=== PATIENT | female | born 1940 | race Caucasian/White ===

== ENCOUNTER 2016-11-09 15:51 | Inpatient (IN) | payer OTHER ==
[~2016-11-09] VITALS: Ht 152.4 cm; Wt 53.9 kg
[2016-11-09] MEDS ORDERED: ONDANSETRON (ODT) 4 MG TAB ODT STA (17:04)
[2016-11-09] MEDS ORDERED: HYDROCODONE/APAP (5/325) TAB PO ONE (17:30)
--- NOTE | 2016-11-09 17:38 | RADRPT ---
PROCEDURE: XR Right Shoulder CLINICAL INDICATION: Trauma TECHNIQUE: AP internal and external rotation views were submitted. COMPARISON: None FINDINGS: Osseous structures: The surgical neck of the proximal right humerus is poorly seen due to the angle of projection. A nondisplaced fracture is suspected. The remaining osseous elements appear rarefie d but intact. Joint spaces: There is an anterior inferior glenohumeral dislocation. Mild degenerative changes are seen about the right AC joint. Soft tissues: Calcification is seen in the soft tissues inferior to the acromion. IMPRESSION: 1. Anterior inferior glenohumeral dislocation. 2. Suspicion of a nondisplaced fracture through the surgical neck of the proximal right humerus whi ch is less than on the seen due to the angulation of the image. 3. Mild degenerative change seen about the right AC joint with calcification projecting to the soft tissues inferior to the acromion. Physician Andrea Date Time Electronically viewed and signed by Physician Andrea on 11/09/2016 17:38 /
[2016-11-09] MEDS ORDERED: SOD CHLORIDE 0.9% 1,000 ML IV ONE (18:00)
[2016-11-09] MEDS ORDERED: LEVO75TA65 PO (18:19)
[2016-11-09] MEDS ORDERED: LOSA50TA6 PO (18:19)
[2016-11-09] MEDS ORDERED: DICL50TA11 PO (18:20)
[2016-11-09 18:24] LABS: HEMATOCRIT 38.4 % (37.0-47.0); HEMOGLOBIN 13.2 g/dl (12.0-16.0); LYMPHOCYTES # 0.6 10^3/ul (0.8-2.9); MEAN CORPUSCULAR HEMOGLOBIN 30.4 pg (29.0-33.0); MEAN CORPUSCULAR HGB CONC 34.2 g/dl (32.0-37.0); MEAN CORPUSCULAR VOLUME 88.9 fl (82.0-101.0); MEAN PLATELET VOLUME 8.4 fl (7.4-10.4); MONOCYTE # 0.2 10^3/ul (0.3-0.9); MONOCYTES % 2.2 % (0.0-11.0); NEUTROPHIL # 9.5 10^3/ul (1.6-7.5); NEUTROPHILS % 91.8 % (39.0-77.0); PLATELET COUNT 275 10^3/UL (140-440); RED BLOOD COUNT 4.32 10^6/ul (4.20-5.40); RED CELL DISTRIBUTION WIDTH 13.2 % (11.5-14.5); UNCORRECTED WBC 10.3 10^3/ul (4.8-10.8); WHITE BLOOD COUNT 10.3 10^3/ul (4.8-10.8)
[2016-11-09 18:26] LABS: CONDITION 1; LH ANALYZER COMMENTS 1
[2016-11-09 18:33] LABS: INR 0.95; PARTIAL THROMBOPLASTIN TIME 25.9 Sec (25.0-35.0); PROTIME 12.7 Sec (12.2-14.2)
[2016-11-09] MEDS ORDERED: morphine 4 MG/ML VIAL IV STA (18:33)
[2016-11-09 18:35] LABS: POTASSIUM 3.9 mmol/L (3.5-5.1)
[2016-11-09 18:38] LABS: CALCIUM 8.4 mg/dl (8.4-10.2); CREATININE 0.52 mg/dl (0.44-1.00)
--- NOTE | 2016-11-09 19:47 | ERA ---
ER Documentation Chief Complaint Date/Time DATE: 11/09/16 TIME: 19:37 Chief Complaint right arm pain from a fall this morning. no obvious deformity, limited rom HPI Patient fell this morning on moving for and landed all the way down her right shoulder joint. She had immediate shoulder pain at that time. She is been able to use the arm at all. She has significant pain. States that she suffered no head injury or loss of consciousness. No other injury and source of pain in her body. She is generally healthy with a history of only hypertension and thyroidism. ROS All systems reviewed and are negative except as per history of present illness. Medications Home Meds Reported Medications Diclofenac Sodium* (Diclofenac Sodium*) 50 Mg Tablet.dr, 50 MG PO BID Y for PAIN , #60 TAB 11/09/16 Levothyroxine Sodium* (Levoxyl*) 75 Mcg Tablet, 75 MCG PO BEFORE BREAKFAST, #30 TAB 11/09/16 Losartan Potassium* (Losartan Potassium*) 50 Mg Tablet, 50 MG PO DAILY, TAB 11/09/16 Allergies Allergies: Coded Allergies: No Known Allergy (Unverified , 11/09/16) PMhx/Soc Medical and Surgical Hx: pt denies Surgical Hx History of Surgery: No Anesthesia Reaction: No Hx Neurological Disorder: No Hx Respiratory Disorders: No Hx Cardiac Disorders: No Hx Psychiatric Problems: No Hx Miscellaneous Medical Probl: Yes (HTN) Hx Alcohol Use: No Hx Substance Use: No Hx Tobacco Use: No Smoking Status: Never smoker Physical Exam Vitals Vital Signs Date Time Temp Pulse Resp B/P Pulse Ox O2 Delivery O2 Flow Rate FiO2 11/09/16 15:57 98.5 76 20 174/88 98 Physical Exam Const: [] Mild distress, appears in pain Head: Atraumatic Eyes: Normal Conjunctiva him EOMI, PRL ENT: Normal External Ears, Nose and Mouth. Neck: Full range of motion..~ No meningismus. Resp: Clear to auscultation bilaterally Cardio: Regular rate and rhythm, no murmurs Abd: Soft, non tender, non distended. Normal bowel sounds Skin: No petechiae or rashes Back: No midline or flank tenderness Ext: No cyanosis, significant tenderness along the upper arm. Patient able to move arm secondary to pain. The pulses intact all 4 extremities Neur: Awake and alert and oriented 3, no focal deficits, normal gait Psych: Normal Mood and Affect Result Diagram: 11/09/16180911/09/16 181 Results 24 hrs Laboratory Tests Test 11/09/16 18:10 Activated Partial Thromboplast Time 25.9Sec Anion Gap 14 Basophils # 0.010^3/ul Basophils % 0.0% Blood Urea Nitrogen 15mg/dl Calcium Level 8.4mg/dl Carbon Dioxide Level 27mmol/L Chloride Level 99mmol/L Creatinine 0.52mg/dl Eosinophils # 0.010^3/ul Eosinophils % 0.0% Glucose Level 124mg/dl Hematocrit 38.4% Hemoglobin 13.2g/dl INR International Normalized Ratio 0.95 Lymphocytes # 0.610^3/ul Lymphocytes % 6.0% Mean Corpuscular Hemoglobin 30.4pg Mean Corpuscular Hemoglobin Concent 34.2g/dl Mean Corpuscular Volume 88.9fl Mean Platelet Volume 8.4fl Monocytes # 0.210^3/ul Monocytes % 2.2% Neutrophils # 9.510^3/ul Neutrophils % 91.8% Nucleated Red Blood Cells # 0.010^3/ul Nucleated Red Blood Cells % 0.0/100WBC Platelet Count 77771^3/UL Potassium Level 3.9mmol/L Prothrombin Time 12.7Sec Prothrombin Time Ratio 1.0 Red Blood Count 4.3210^6/ul Red Cell Distribution Width 13.2% Sodium Level 136mmol/L White Blood Count 10.310^3/ul Current Medications Medications (Trade) Dose Ordered Sig/Casi Route PRN Reason Start Time Stop Time Status Last Admin Dose Admin Acetaminophen/ Hydrocodone Bitart (Victoria (5/325)) 1 tab ONCE ONCE PO 11/09/16 17:30 11/09/16 17:31 DC 11/09/16 17:13 Ondansetron HCl 4 mg 4 mg ONCE STAT ODT 11/09/16 17:04 11/09/16 17:06 DC 11/09/16 17:13 Sodium Chloride (NS) 1,000 ml @ 1,000 mls/hr Q1H ONCE IV 11/09/16 18:00 11/09/16 18:59 DC Morphine Sulfate (morphine) 4 mg ONCE STAT IV 11/09/16 18:33 11/09/16 18:34 DC 11/09/16 18:41 Procedures/MDM (Joint dislocation with displaced humeral fracture. Spoke with Dr. Montero after the x-ray and he stated this need to be repaired surgically. Performed preop testing with laboratories, chest x-ray EKG. I spoke with her doctor at [facility] or the patient's insurance is based. She said she would attempt to find orthopedic surgeon except in case there and with transfer the patient otherwise she will outpatient stay here. According to registration should call back and said the patient could be admitted here to [facility]. Spoke with Dr. arias who admitted the patient to [facility]. I gave her a liter of normal saline obtained multiple laboratories. Also gave her 4 mg of morphine which helped her pain much more than the Victoria had. She is nothing by mouth until surgery which is intended for tomorrow according to Dr. Montero. Dr. Montero requested a CT of the right shoulder as well. EKG interpretation: Normal sinus rhythm rate of 70, normal axis, no ST-T wave changes concerning for acute ischemia tube washer interpretation: Normal sinus rhythm without arrhythmia Chest x-ray interpretation: Humeral fracture is arty seen, I see no other acute process, no pneumothorax, no widened mediastinum, no pulmonary edema, no other fractures Shoulder x-ray interpretation: Glenohumeral joint dislocation with completely displaced fracture of the proximal humerus. Departure Diagnosis: Primary Impression: Closed dislocation of glenohumeral joint Additional Impressions: Fracture of proximal end of right humerus Hypertension Hypothyroid Condition: Stable TYLER MEDINA DO Nov 09, 2016 19:47
[2016-11-09] MEDS ORDERED: ACETAMINOPHEN 325 MG TAB PO PRN ×2 (20:00)
[2016-11-09] MEDS ORDERED: NACL 0.9% 3 ML SYG IV SCH (20:00)
[2016-11-09] MEDS ORDERED: DOCUSATE SODIUM 100 MG CAP PO PRN (20:00)
[2016-11-09] MEDS ORDERED: ONDANSETRON 4 MG INJ IV PRN ×2 (20:00)
--- NOTE | 2016-11-09 20:00 | RADRPT ---
PROCEDURE: Chest xray. CLINICAL INDICATION: Abdominal TECHNIQUE: A portable semi-erect AP view of the chest was obtained. COMPARISON: Right shoulder x-ray dated 11/09/2016. No prior chest x-ray is available for comparis on. FINDINGS: The cardiac silhouette is mildly enlarged. Atherosclerotic calcifications are noted in the aortic a rch. The lungs are well expanded and show normal vascularity. No focal opacity, pleural effusion, or pneumothorax is identified. Anterior inferior dislocation of the right glenohumeral joint is agai n noted, better evaluated on the shoulder xray and CT performed earlier today. IMPRESSION: Mild cardiomegaly. Otherwise, no acute intrathoracic abnormality. Anterior inferior glenohumeral dislocation of the right shoulder. RPTAT:PP .Maxine Weaver MD, Date Time Electronically viewed and signed by .Maxine Weaver MD, on 11/09/2016 19:55 .K/
[2016-11-09 20:16] LABS: CHOL/HDL RATIO 4.8 RATIO; MAGNESIUM 1.8 mg/dl (1.7-2.5)
--- NOTE | 2016-11-09 20:17 | RADRPT ---
PROCEDURE: CT of the upper extremity without intravenous contrast. CLINICAL INDICATION: Trauma TECHNIQUE: CT of the right shoulder upper extremity was performed without contrast utilizing axial images with reconstructions in sagittal and coronal planes. The administered radiation dose is CTDI 11.5 mGy, DLP 207.2 mGy-cm. COMPARISON: There are no similar studies submitted for comparison. FINDINGS: There is inferior dislocation of the humeral head. Joint effusion is present. Arthritic changes of the shoulder are present. Multiple small osseous fragments are noted within the joint space. These appear to be degenerative in etiology. No definite acute fractures are identified. There is moder ate to large joint effusion. The subcutaneous soft tissues are within normal limits. IMPRESSION: Shoulder dislocation without definite fracture. RPTAT: HIKT .Sebastian Smith MD, Date Time Electronically viewed and signed by .Sebastian Smith MD, on 11/09/2016 20:17 .T/
[2016-11-09 20:19] VITALS: BP 193/79; RESP 18
--- NOTE | 2016-11-09 20:25 | HP ---
Date/Time of Note Date/Time of Note DATE: 11/09/16 TIME: 20:16 Assessment/Plan VTE Prophylaxis VTE Prophylaxis Intervention: SCD's Assessment/Plan Assessment/Plan 76 yo female with a past medical history of essential hypertension, hypothyroidism, who sustained a fall today, and fell on her right shoulder. 1. Acute right shoulder dislocation with right non-displaced fracture of humeral head - will admit the patient to med/surg, consult Dr. Montero (ortho) for surgical manipulation and fixation, continue with pain medications, medically cleared for surgery, bowel regimen, PT 2. Essential hypertension - continue with losartan, hydralazine prn for SBP > 160 3. Hypothyroidism - check TSH, continue with synthroid 4. GI ppx - pepcid IV 5. DVT ppx - scds answered all of her questions. as per clinical course. this history and physical took greater then 45 minutes to complete HPI/ROS Admit Date/Time Admit Date/Time Nov 09, 2016 at 19:37 Hx of Present Illness 76 yo female with a past medical history of essential hypertension, hypothyroidism, who sustained a fall today, and fell on her right shoulder. She is now complaining of right shoulder pain, 6/10 in intensity, non-radiating, sharp/shooting in nature, took diclofenac with no alleviation of pain, movement aggravates the pain at this time. She states that she slipped and fell, and landed on her right side. She did not have syncope, lose consciousness, have any sort of dizziness or hit her head. This has never happened before. Otherwise denies any chest pain, shortness of breath, headaches, urinary/bowel irregularities, fevers/chills, nausea/vomiting/diarrhea/constipation, direct trauma, or other constitutional symptoms. Patient is able to walk up a flight of stairs without getting short of breath, 4 METS achieved. ER course: pain medications, right shoulder x-ray (see report) ROS 14 point review of systems completed, please refer to HPI for any positive findings PMH/Family/Social Past Medical History Medical History: hypertension, hypothyroid Past Surgical History Family History Significant Family History: no pertinent family hx Social History Alcohol Use: none Smoking Status: Never smoker Drug Use: none Exam/Review of Systems Vital Signs Vitals Vital Signs Date Time Temp Pulse Resp B/P Pulse Ox O2 Delivery O2 Flow Rate FiO2 11/09/16 20:06 74 16 164/86 98 Room Air 11/09/16 15:57 98.5 Exam Exam Gen Renata: mild to moderate distress 2/2 to right shoulder pain, AAOx4 HEENT: NC/AT, PERRLA, EOMI, no pharyngeal erythema, no tonsillar exudates, no lymphadenopathy, no JVD, no carotid bruits NECK: supple, no thyromegaly THORAX: symmetrical, no obvious deformities CV: S1S2, RRR, no M/G/R Lungs: CTAB no W/C/R/R Abd: soft, NT/ND, +BS, no rebound, no guarding, neg HSM EXT: no edema, no ecchymosis, no clubbing, right arm - tenderness to palpation around gleno-humeral joint, no ecchymoses noted, left arm FROM Neuro: CN II-XII grossly intact, no focal deficits Psych: fair mood and affect Skin: C/D/I Labs Result Diagram: 11/09/16180911/09/161809 Medications Medications Current Medications Sodium Chloride (NS) 1,000 ml @ 75 mls/hr [id number] IV ; Start 11/09/16 at 19:36 Ondansetron HCl (Zofran Inj) 4 mg Q6H PRN IV NAUSEA AND/OR VOMITING; Start at 20:00 Acetaminophen (Tylenol Tab) 650 mg Q6H PRN PO PAIN LEVEL 1-3 OR FEVER; Start at 20:00 Morphine Sulfate (morphine) 2 mg Q4H PRN IV SEVERE PAIN LEVEL 7-10; Start 11/09 at 20:00 Docusate Sodium (Colace) 100 mg Q12H PRN PO CONSTIPATION; Start 11/09/16 at 20: 00 Famotidine (Pepcid Iv) 20 mg Q12 IV ; Start 11/09/16 at 21:00 Losartan Potassium (Cozaar) 50 mg DAILY PO ; Start 11/10/16 at 09:00 Hydralazine HCl (Apresoline) 10 mg Q6H PRN IV sbp > 160; Start 11/09/16 at 20: 00 Procedures Procedures Right shoulder x-ray IMPRESSION: 1. Anterior inferior glenohumeral dislocation. 2. Suspicion of a nondisplaced fracture through the surgical neck of the proximal right humerus which is less than on the seen due to the angulation of the image. 3. Mild degenerative change seen about the right AC joint with calcification projecting to the soft tissues inferior to the acromion. ERICH COTE MD Nov 09, 2016 20:25
[2016-11-09 20:32] LABS: T3 UPTAKE 39.3 % (23.5-40.5)
[2016-11-09 20:41] LABS: CREATINE KINASE 330 IU/L (23-200)
[2016-11-09] MEDS: SOD CHLORIDE 0.9% 1,000 ML IV SCH (20:50)
[2016-11-09 20:51] LABS: CK-MB 3.04 ng/ml (0.0-2.4)
[2016-11-09] MEDS: hydrALAzine 20 MG INJ IV PRN (21:00)
[2016-11-09] MEDS: FAMOTIDINE 20 MG INJ IV SCH (21:00)
[2016-11-09 21:01] LABS: TROPONIN-I < 0.012 ng/ml (0.00-0.12)
[2016-11-09] MEDS: morphine 2 MG INJ IV PRN (22:17)
[2016-11-09 22:30] VITALS: BP 157/65; PULSE 69; RESP 18
[2016-11-10] VITALS (29 sets, daily range): BP systolic 122–172; BP diastolic 51–85; PULSE 69–178; RESP 17–24
[2016-11-10] MEDS: morphine 2 MG INJ IV PRN ×3 (02:18→12:25)
[2016-11-10 02:35] LABS: CREATINE KINASE 399 IU/L (23-200)
[2016-11-10 02:41] LABS: CK-MB 3.69 ng/ml (0.0-2.4)
[2016-11-10 02:52] LABS: TROPONIN-I < 0.012 ng/ml (0.00-0.12)
[2016-11-10] MEDS: LEVOTHYROXINE 75 MCG TAB PO SCH (05:57)
[2016-11-10 06:36] LABS: POTASSIUM 3.4 mmol/L (3.5-5.1)
[2016-11-10 06:38] LABS: CREATININE 0.55 mg/dl (0.44-1.00)
[2016-11-10 06:39] LABS: CALCIUM 7.8 mg/dl (8.4-10.2)
[2016-11-10 07:18] LABS: BASOPHILS % 0.1 % (0.0-2.0); EOSINOPHILS % 0.1 % (0.0-7.0); HEMATOCRIT 35.8 % (37.0-47.0); HEMOGLOBIN 12.4 g/dl (12.0-16.0); LYMPHOCYTES # 0.7 10^3/ul (0.8-2.9); LYMPHOCYTES % 9.5 % (15.0-51.0); MEAN CORPUSCULAR HGB CONC 34.7 g/dl (32.0-37.0); MEAN CORPUSCULAR VOLUME 89.4 fl (82.0-101.0); MEAN PLATELET VOLUME 8.8 fl (7.4-10.4); MONOCYTE # 0.5 10^3/ul (0.3-0.9); MONOCYTES % 6.5 % (0.0-11.0); NEUTROPHIL # 6.2 10^3/ul (1.6-7.5); NEUTROPHILS % 83.8 % (39.0-77.0); PLATELET COUNT 239 10^3/UL (140-440); RED CELL DISTRIBUTION WIDTH 13.5 % (11.5-14.5); UNCORRECTED WBC 7.4 10^3/ul (4.8-10.8); WHITE BLOOD COUNT 7.4 10^3/ul (4.8-10.8)
[2016-11-10 07:23] LABS: CONDITION 1
[2016-11-10] MEDS: hydrALAzine 20 MG INJ IV PRN (08:24)
[2016-11-10] MEDS: SOD CHLORIDE 0.9% 1,000 ML IV SCH ×2 (08:56→18:05)
[2016-11-10] MEDS: FAMOTIDINE 20 MG INJ IV SCH ×2 (09:00→21:24)
[2016-11-10] MEDS: LOSARTAN 50 MG TAB PO SCH (09:00)
[2016-11-10] MEDS ORDERED: MIDAZOLAM 1 MG/ML 2 ML INJ ONE (10:47)
[2016-11-10] MEDS ORDERED: PROPOFOL 20 ML ONE (11:01)
[2016-11-10] MEDS ORDERED: LIDOCAINE 2% (SDV) 5 ML INJ ONE (11:01)
--- NOTE | 2016-11-10 11:29 | PN ---
Date/Time of Note Date/Time of Note DATE: 11/10/16 TIME: 11:27 Assessment/Plan VTE Prophylaxis VTE Prophylaxis Intervention: SCD's Lines/Catheters IV Catheter Type (from Nrsg): Peripheral IV Assessment/Plan Chief Complaint/Hosp Course 76 yo female with a past medical history of essential hypertension, hypothyroidism, mechanical fall with left shoulder fracture and dislocation 1. Acute right shoulder dislocation with right non-displaced fracture of humeral head Patient taken to the OR this morning by Dr. Montero Continue postop recommendations 2. Essential hypertension BP likely elevated secondary to pain, continue with losartan, hydralazine prn for SBP > 160 3. Hypothyroidism - check TSH, continue with synthroid 4. GI ppx - pepcid IV 5. DVT ppx - scds Problems: Subjective 24 Hr Interval Summary Free Text/Dictation The patient taken to the OR for shoulder surgery Stable following transfer to [facility] floor from ER Exam/Review of Systems Vital Signs Vitals Vital Signs Date Time Temp Pulse Resp B/P Pulse Ox O2 Delivery O2 Flow Rate FiO2 11/10/16 11:18 Simple Mask 10.0 11/10/16 11:08 78 22 131/51 100 11/10/16 11:06 98.2 Intake and Output 11/09/16 11/09/16 11/10/16 15:00 23:00 07:00 Intake Total 600 ml Balance 600 ml Exam GENERAL: Elderly lady left arm in sling VITAL SIGNS: per chart NECK: Supple. No JVD or lymphadenopathy. CARDIAC EXAM: S1, S2. No added sounds or murmurs. CHEST: clear bilaterally, No added sounds, rales or wheezes ABDOMEN: Soft, nontender. No guarding or rebound. EXTREMITIES: No cyanosis, clubbing or edema. NEUROLOGIC: Generalized weakness. No focal deficits. Results Result Diagram: 11/10/16 0516 11/10/16 0516 Results 24 hrs Laboratory Tests Test 11/09/16 18:10 11/10/16 01:51 11/10/16 05:16 Activated Partial Thromboplast Time 25.9 Anion Gap 14 12 Basophils # 0.0 0.0 Basophils % 0.0 0.1 Blood Urea Nitrogen 15 12 Calcium Level 8.4 7.8 L Carbon Dioxide Level 27 27 Chloride Level 99 102 Cholesterol Level 243 H Cholesterol/HDL Ratio 4.8 Creatine Kinase 330 H 399 H Creatine Kinase Index 0.9 0.9 Creatinine 0.52 0.55 Creatinine Kinase MB (Mass) 3.04 H 3.69 H Eosinophils # 0.0 0.0 Eosinophils % 0.0 0.1 Free Thyroxine Index 3.58 Glucose Level 124 109 HDL Cholesterol 50 Hematocrit 38.4 35.8 L Hemoglobin 13.2 12.4 Hemoglobin A1c 5.5 INR International Normalized Ratio 0.95 LDL Cholesterol, Calculated 179 Lymphocytes # 0.6 L 0.7 L Lymphocytes % 6.0 L 9.5 L Magnesium Level 1.8 Mean Corpuscular Hemoglobin 30.4 31.0 Mean Corpuscular Hemoglobin Concent 34.2 34.7 Mean Corpuscular Volume 88.9 89.4 Mean Platelet Volume 8.4 8.8 Monocytes # 0.2 L 0.5 Monocytes % 2.2 6.5 Neutrophils # 9.5 H 6.2 Neutrophils % 91.8 H 83.8 H Nucleated Red Blood Cells # 0.0 0.0 Nucleated Red Blood Cells % 0.0 0.0 Platelet Count 275 239 Potassium Level 3.9 3.4 L Prothrombin Time 12.7 Prothrombin Time Ratio 1.0 Red Blood Count 4.32 4.00 L Red Cell Distribution Width 13.2 13.5 Sodium Level 136 138 Thyroxine (T4) 9.1 Triglycerides Level 72 Triiodothyronine (T3) Uptake 39.3 Troponin I < 0.012 < 0.012 White Blood Count 10.3 7.4 # Medications Medications Current Medications Sodium Chloride (NS) 1,000 ml @ 75 mls/hr [id number] IV Last administered on 11/09 20:50; Admin Dose 75 MLS/HR; Start 11/09/16 at 19:36 Ondansetron HCl (Zofran Inj) 4 mg Q6H PRN IV NAUSEA AND/OR VOMITING Last administered on 11/09/16 22:18; Admin Dose 4 MG; Start 11/09/16 at 20:00 Acetaminophen (Tylenol Tab) 650 mg Q6H PRN PO PAIN LEVEL 1-3 OR FEVER; Start at 20:00 Morphine Sulfate (morphine) 2 mg Q4H PRN IV SEVERE PAIN LEVEL 7-10 Last administered on 11/10/16 06:27; Admin Dose 2 MG; Start 11/09/16 at 20:00 Docusate Sodium (Colace) 100 mg Q12H PRN PO CONSTIPATION; Start 11/09/16 at 20: 00 Famotidine (Pepcid Iv) 20 mg Q12 IV Last administered on 11/09/16 21:00; Admin Dose 20 MG; Start 11/09/16 at 21:00 Losartan Potassium (Cozaar) 50 mg DAILY PO ; Start 11/10/16 at 09:00 Hydralazine HCl (Apresoline) 10 mg Q6H PRN IV sbp > 160 Last administered on 08:24; Admin Dose 10 MG; Start 11/09/16 at 20:00 TIFFANIE OBRIEN MD, [facility] Nov 10, 2016 11:29
[2016-11-10] MEDS ORDERED: ONDANSETRON 4 MG INJ IV PRN (11:30)
[2016-11-10] MEDS ORDERED: HYDROmorphONE (0.2 MG/ML) 10ML SYG IV PRN (11:30)
[2016-11-10] MEDS ORDERED: FENTAnyl 50 MCG/ML VIAL IV PRN (11:30)
[2016-11-10] MEDS ORDERED: PROCHLORPERAZINE 10 MG INJ IV PRN (11:30)
[2016-11-10] MEDS ORDERED: DIPHENHYDRAMINE 50 MG INJ IV PRN (11:30)
--- NOTE | 2016-11-10 11:38 | RADRPT ---
PROCEDURE: Fluoroscopy. CLINICAL INDICATION: Intraoperative fluoroscopic guidance. Close reduction right shoulder dislocati on. TECHNIQUE: Fluoroscopic guidance provided for intraoperative procedure. COMPARISON: 10/28/2016 CT abdomen. FINDINGS: 15.7 seconds fluoroscopy time was used. 2 intraoperative spot radiographs obtained. Successful redu ction of right shoulder dislocation. IMPRESSION: Fluoroscopic guidance provided for intraoperative procedure. Successful reduction right shoulder dis location. RPTAT:AAJJ Physician Cristobal Date Time Electronically viewed and signed by Physician Cristobal on 11/10/2016 11:37 JANET/
--- NOTE | 2016-11-10 12:30 | RADRPT ---
PROCEDURE: Right shoulder series. CLINICAL INDICATION: Status post reduction TECHNIQUE: AP views of the shoulder were performed with internal and external rotation. COMPARISON: Films from the same day. FINDINGS: No acute fracture or dislocation. Successful reduction has been achieved. The glenohumeral and acromioclavicular joint spaces are intact. There are degenerative changes of th e AC joint. IMPRESSION: Successful reduction. No new fractures. RPTAT: RICNH. .Minerva Hanson MD, Date Time Electronically viewed and signed by .Minerva Hanson MD, on 11/10/2016 12:29 .M/
--- NOTE | 2016-11-10 14:33 | CONS ---
DATE OF ADMISSION: 11/09/2016 DATE OF CONSULTATION: 11/09/2016 HISTORY OF PRESENT ILLNESS: The patient is a 76-year-old female who was admitted on 11/09/2016 when she was brought into the emergency room of the [facility] because of the painful limit of motion and swelling involving her right shoulder. Following initial evaluation, including x-rays which revealed an obvious dislocation of the glenohumeral joint of the right shoulder, she wa s admitted. According to the patient and the family members, she was at religion and tripped over a step and fell landing on the right shoulder. Following the fall, she was having obvious pain and limited motion i nvolving her right shoulder. She is known to have a history of essential hypertension, hypothyroidism. Denies any history of pre vious injury involving her right shoulder. PHYSICAL EXAMINATION: My examination revealed an obvious dislocation at the glenohumeral joint of t he right shoulder. The shaped of the proximal humerus around the head and neck was somewhat abnorma l and it can be either because of the rotation of the proximal humerus itself or possibly a fracture , but this was not clear. GENERAL: My examination revealed a 76-year-old female who was not in any acute distress. EXTREMITIES: There was a painful limit of motion of the right shoulder. There is an abnormal hollo wness in the subacromial space of the right shoulder. There were no obvious sensory changes in the axillary nerve dermatome. There were no obvious gross neurovascular compromise involving the right upper extremity. DIAGNOSTIC IMPRESSION: Acute fracture of the glenohumeral joint of the right shoulder, rule out pos sible fracture involving the proximal humerus. TREATMENT PLAN: 1. CT scan of the right shoulder to clarify the pathology. 2. Trial of manipulative reduction under anesthesia as soon as possible. Dictated By: CHRIST MUNGUIA/DANNY Conf#: [id number] DID#: [id number]
--- NOTE | 2016-11-10 16:44 | OPR ---
DATE OF OPERATION: 11/10/2016 PREOPERATIVE DIAGNOSIS: Traumatic dislocation of the glenohumeral joint of the right shoulder, rule out possible fracture of the proximal humerus. POSTOPERATIVE DIAGNOSIS: Traumatic dislocation of the glenohumeral joint of the right shoulder, no evidence of acute fracture. PROCEDURE PERFORMED: Manipulative reduction of the dislocated glenohumeral joint of the right shoul veronica under general anesthesia and immobilization of the right upper extremity in a sling. No signs o f fracture involving the proximal humerus. ANESTHESIA: General anesthesia. SURGEON: Christ Montero MD PROCEDURE AND FINDINGS: Under general anesthesia, the patient was placed in supine position upon th e operating table. Radiology evaluation at this time revealed an obvious dislocation rotational mot ion and examination showed that there is no actual fracture involving the proximal humerus. While t he patient is under anesthesia, manipulative reduction was carried out by putting distal axial tract ion followed by gentle rotation of motion, pushing the humeral head back to the glenoid cavity. Aft er the reduction, biplane fluoroscopic examination revealed a satisfactory alignment of the glenohum eral joint. Right upper extremity was immobilized in a sling. The patient tolerated the entire procedure very well and was sent to the recovery room in excellent condition. Dictated By: CHRIST MUNGUIA/DANNY Conf#: [id number] DID#: [id number]
[2016-11-10] MEDS ORDERED: DILTIAZEM 25 MG INJ IV SCH (18:30)
[2016-11-10] MEDS ORDERED: SOD CHLORIDE 0.9% 500 ML IV ONE (18:30)
[2016-11-10] MEDS ORDERED: MAGNESIUM SULFATE 2 GM/50 ML 50 ML IVPB ONE (18:30)
[2016-11-10] MEDS ORDERED: DILTIAZEM 25 MG INJ IV ONE (18:30)
--- NOTE | 2016-11-10 18:46 | EN ---
Date/Time of Note Date/Time of Note DATE: 11/10/16 TIME: 18:44 Event Note Medicine Medicine Event Note [employer] was called for new onset Atrial fibrillation post Op Stat bedside EKG done and reviewed by me Resuscitative measures and labs instituted Patient transferred to telemetry floor. See orders for details CC time: 30 mins KIRBY GILMORE Nov 10, 2016 18:45
[2016-11-10] MEDS ORDERED: POTASSIUM CHLORIDE 250 ML IVPB ONE (19:30)
[2016-11-10 20:02] LABS: MAGNESIUM 1.9 mg/dl (1.7-2.5); PHOSPHORUS 2.2 mg/dl (2.5-4.9)
[2016-11-10 20:11] LABS: CK-MB 2.11 ng/ml (0.0-2.4)
[2016-11-10 20:14] LABS: TROPONIN-I 0.018 ng/ml (0.00-0.12)
[2016-11-11] VITALS (10 sets, daily range): BP systolic 123–133; BP diastolic 60–68; PULSE 69–100; RESP 18
[2016-11-11 04:03] LABS: ADD UMIC YES; URINE BILIRUBIN (Dip) NEGATIVE (NEGATIVE); URINE BLOOD (Dip) 2+ (NEGATIVE); URINE COLOR LT. YELLOW (YELLOW); URINE GLUCOSE (Dip) NEGATIVE (NEGATIVE); URINE KETONES (Dip) TRACE (NEGATIVE); URINE LEUKOCYTE ESTERASE (Dip) TRACE (NEGATIVE); URINE NITRITE (Dip) NEGATIVE (NEGATIVE); URINE TOTAL PROTEIN (Dip) NEGATIVE (NEGATIVE); URINE UROBILINOGEN (Dip) 0.2 E.U./dL (0.1-1.0)
[2016-11-11 05:28] LABS: BACTERIA,URINE FEW; SQUAMOUS EPITHELIAL CELL,UR FEW
[2016-11-11] MEDS: LEVOTHYROXINE 75 MCG TAB PO SCH (07:05)
[2016-11-11] MEDS: SOD CHLORIDE 0.9% 1,000 ML IV SCH ×2 (07:06→11:24)
[2016-11-11] MEDS: FAMOTIDINE 20 MG INJ IV SCH (08:07)
[2016-11-11] MEDS: LOSARTAN 50 MG TAB PO SCH (08:08)
[2016-11-11 10:04] LABS: BASOPHILS % 0.3 % (0.0-2.0); HEMATOCRIT 31.2 % (37.0-47.0); LYMPHOCYTES # 0.7 10^3/ul (0.8-2.9); LYMPHOCYTES % 14.1 % (15.0-51.0); MEAN CORPUSCULAR HGB CONC 35.1 g/dl (32.0-37.0); MEAN CORPUSCULAR VOLUME 88.3 fl (82.0-101.0); MEAN PLATELET VOLUME 8.4 fl (7.4-10.4); MONOCYTE # 0.4 10^3/ul (0.3-0.9); MONOCYTES % 7.2 % (0.0-11.0); NEUTROPHIL # 3.8 10^3/ul (1.6-7.5); NEUTROPHILS % 78.4 % (39.0-77.0); PLATELET COUNT 191 10^3/UL (140-440); RED BLOOD COUNT 3.54 10^6/ul (4.20-5.40); RED CELL DISTRIBUTION WIDTH 13.2 % (11.5-14.5); UNCORRECTED WBC 4.9 10^3/ul (4.8-10.8); WHITE BLOOD COUNT 4.9 10^3/ul (4.8-10.8)
[2016-11-11 10:09] LABS: CONDITION 1
[2016-11-11 10:29] LABS: POTASSIUM 3.5 mmol/L (3.5-5.1)
[2016-11-11 10:32] LABS: CREATININE 0.5 mg/dl (0.44-1.00)
[2016-11-11 10:33] LABS: CALCIUM 6.5 mg/dl (8.4-10.2); MAGNESIUM 2.3 mg/dl (1.7-2.5)
--- NOTE | 2016-11-11 15:05 | DS ---
Date/Time of Note Date/Time of Note DATE: 11/11/16 TIME: 14:58 Discharge Summary Admission/Discharge Info Admit Date/Time Nov 09, 2016 at 19:37 Discharge Date/Time Final Diagnosis 1. Traumatic dislocation of the glenohumeral joint of the right shoulder, no evidence of acute fracture, s/p Manipulative reduction, stable, follow up with PCP 2. Hypertension, stable 3. Hypothyroidism, stable Patient Condition: Stable Hospital Course 76 yo female with a past medical history of essential hypertension, hypothyroidism, who sustained a fall today, and fell on her right shoulder. She is now complaining of right shoulder pain, 6/10 in intensity, non-radiating, sharp/shooting in nature, took diclofenac with no alleviation of pain, movement aggravates the pain at this time. She states that she slipped and fell, and landed on her right side. She did not have syncope, lose consciousness, have any sort of dizziness or hit her head. This has never happened before. Otherwise denies any chest pain, shortness of breath, headaches, urinary/bowel irregularities, fevers/chills, nausea/vomiting/diarrhea/constipation, direct trauma, or other constitutional symptoms. Patient is able to walk up a flight of stairs without getting short of breath, 4 METS achieved. Patient had right shoulder pain, x-ray and CT scan indicated right shoulder dislocation. Patient had Manipulative reduction on 11/10/2016. Symptoms improved. Home Meds Reported Medications Diclofenac Sodium* (Diclofenac Sodium*) 50 Mg Tablet.dr, 50 MG PO BID Y for PAIN , #60 TAB 11/09/16 Levothyroxine Sodium* (Levoxyl*) 75 Mcg Tablet, 75 MCG PO BEFORE BREAKFAST, #30 TAB 11/09/16 Losartan Potassium* (Losartan Potassium*) 50 Mg Tablet, 50 MG PO DAILY, TAB 11/09/16 Follow-up Plan follow up PCP Pending Labs Laboratory Tests Test 11/10/16 18:07 11/10/16 19:30 11/10/16 22:30 11/11/16 09:40 Bedside Glucose 111mg/dL (70-220) Creatine Kinase 673IU/L (23-200) Creatine Kinase Index 0.3 Creatinine Kinase MB (Mass) 2.11ng/ml (0.0-2.4) Magnesium Level 1.9mg/dl (1.7-2.5) 2.3mg/dl (1.7-2.5) Phosphorus Level 2.2mg/dl (2.5-4.9) 1.0mg/dl (2.5-4.9) Thyroid Stimulating Hormone (TSH) 2.160MIU/L (0.465-4.680) Troponin I 0.018ng/ml (0.00-0.12) Urine Bacteria FEW Urine Bilirubin NEGATIVE (NEGATIVE) Urine Clarity CLEAR (CLEAR) Urine Color LT. YELLOW (YELLOW) Urine Glucose NEGATIVE% (NEGATIVE) Urine Hemoglobin 2+ (NEGATIVE) Urine Ketones TRACE (NEGATIVE) Urine Leukocyte Esterase TRACE (NEGATIVE) Urine Microscopic RBC 2-5/HPF (0) Urine Microscopic WBC 2-5/HPF (0) Urine Nitrite NEGATIVE (NEGATIVE) Urine Specific [place] <=1.005 (1.003-1.030) Urine Squamous Epithelial Cells FEW Urine Total Protein NEGATIVE (NEGATIVE) Urine Urobilinogen 0.2 E.U./dL (0.1-1.0) Urine pH 6.5 (5.0-9.0) Anion Gap 14 (8-16) Basophils # 0.010^3/ul (0.0-0.1) Basophils % 0.3% (0.0-2.0) Blood Urea Nitrogen 11mg/dl (7-20) Calcium Level 6.5mg/dl (8.4-10.2) Carbon Dioxide Level 21mmol/L (21-31) Chloride Level 110mmol/L (97-110) Creatinine 0.50mg/dl (0.44-1.00) Eosinophils # 0.010^3/ul (0.0-0.5) Eosinophils % 0.0% (0.0-7.0) Glucose Level 121mg/dl (70-220) Hematocrit 31.2% (37.0-47.0) Hemoglobin 11.0g/dl (12.0-16.0) Lymphocytes # 0.710^3/ul (0.8-2.9) Lymphocytes % 14.1% (15.0-51.0) Mean Corpuscular Hemoglobin 31.0pg (29.0-33.0) Mean Corpuscular Hemoglobin Concent 35.1g/dl (32.0-37.0) Mean Corpuscular Volume 88.3fl (82.0-101.0) Mean Platelet Volume 8.4fl (7.4-10.4) Monocytes # 0.410^3/ul (0.3-0.9) Monocytes % 7.2% (0.0-11.0) Neutrophils # 3.810^3/ul (1.6-7.5) Neutrophils % 78.4% (39.0-77.0) Nucleated Red Blood Cells # 0.010^3/ul (0.0-0.0) Nucleated Red Blood Cells % 0.0/100WBC (0.0-0.0) Platelet Count 65153^3/UL (140-440) Potassium Level 3.5mmol/L (3.5-5.1) Red Blood Count 3.5410^6/ul (4.20-5.40) Red Cell Distribution Width 13.2% (11.5-14.5) Sodium Level 141mmol/L (135-144) White Blood Count 4.910^3/ul (4.8-10.8) GHADA MELGAR MD Nov 11, 2016 15:05
--- NOTE | 2016-11-11 22:48 | RADRPT ---
Echocardiogram Report Patient Name: KERRIE WARD Gender: Female Date: 1940 Study Date: 11-Nov-2016 Health Care Legal Assistant: Charmaine Muniz [facility] Location: [id number] Ref. Physician: KIRBY GILMORE Quality: Good Procedures: Transthoracic echocardiogram with complete 2D, M-Mode, and doppler examination. Indications: Atrial Fibrillation. 2D/M Mode Doppler Measurement Value Normal Ranges Measurement Value Normal Ranges LVIDd 2D 3.8 3.5 - 5.6 cm AV Peak Robert 2.0 m/sec LVIDs 2D 1.9 2.1 - 4.1 cm AV Peak PG 16.0 mmHg FS 2D 49.5 % AI Peak PG 67.0 mmHg LVPWd 2D 0.9 0.6 - 1.1 cm AI Peak Robert 4.1 m/sec IVSd 2D 0.9 0.6 - 1.1 cm AI PHT 625.0 msec IVS/LVPW 2D 1.0 LVOT Peak Robert 1.3 m/sec AoR Diam 2D 2.3 2.0 - 3.7 cm LVOT Peak PG 7.0 mmHg LA/Ao 2D 1 0 - 1 MV E Peak Robert 0.7 m/sec EDV 2D 53.2 cm3 MV A Peak Robert 0.9 m/sec ESV 2D 6.9 cm3 MV E/A 0.9 LA Dimen 2D 3.0 2.3 - 4.0 cm MV Decel Time 194 msec MV E/A 0.9 TR Peak Robert 2.8 m/sec TR Peak PG 31.0 mmHg RVSP 39.0 mmHg Findings Left Ventricle: Normal left ventricular systolic function. Normal left ventricular cavity size. Normal left ventricular wall thickness. Ejection fraction is visually estimated at 6065 %. Tissue Doppler/Mitral Doppler indices are consistent with impaired relaxation (Stage I diastolic dysfunction). Right Ventricle: Normal right ventricular size. Normal right ventricular systolic function. Left Atrium: There is moderate enlargement of left atrium. Right Atrium: The right atrium is normal in size. Mitral Valve: Mitral valve leaflets appear mildly thickened. Mild mitral annular calcification. Trace mitral regurgitation. Aortic Valve: No hemodynamically significant aortic stenosis by doppler. Aortic cusps appear mildly calcified. Mild aortic valve regurgitation. Tricuspid Valve: Normal appearance of the tricuspid valve. Estimated peak PA systolic pressure 39 mmHg. There is trace to mild tricuspid regurgitation. Pulmonic Valve: Normal pulmonic valve appearance. There is trace pulmonic regurgitation. Pericardium: Normal pericardium with no significant pericardial effusion. Aorta: Normal aortic root. IVC: Dilated IVC with respiratory collapse consistent with elevated right atrial pressure. Conclusions 1.The left ventricle is normal in size and systolic function. 2.Estimated left ventricular ejection fraction of 60-65%. 3.Mild left ventricular diastolic dysfunction. 4.Moderate left atrial enlargement. Electronically Signed By: Jake Gloria 11-Nov-2016 22:47:55 -0800 Patient Name: KERRIE WARD Study Date: 11-Nov-2016 [id number]
--- NOTE | 2016-11-13 09:22 | RADRPT ---
Vent Rate: 68 bpm RR Interval: 0 msec [place] Interval: 126 msec QRS Duration: 76 msec QT Interval: 388 msec QTC Interval: 412 msec P-R-T [place]: 22 - 58 - 47 degrees Normal sinus rhythm Nonspecific T wave abnormality Abnormal ECG Electronically Signed By: Marcelo White [id number]
== END 2016-11-11 17:04 | disposition home or self-care (01) | DRG 556 ==
LOC: FTE 15:51 → MS2 19:37 → MS4 11-10 18:30
PROVIDERS: ADMIT Student in an Organized Health Care Education/Training Program; ATTEND Student in an Organized Health Care Education/Training Program
PROC: 0RSJXZZ Reposition Right Shoulder Joint, External Approach (ICD-10-PCS; principal; 2016-11-10 10:00)
DX: M25.511 Pain in right shoulder (principal); I48.91 Unspecified atrial fibrillation; I10 Essential (primary) hypertension; E03.9 Hypothyroidism, unspecified; S43.004A Unspecified dislocation of right shoulder joint, initial encounter; W10.9XXA Fall (on) (from) unspecified stairs and steps, initial encounter; Y92.22 Religious institution as the place of occurrence of the external cause
CPT/HCPCS: 71010; 73200; 80048; 80061; 81001; 81003; 82550; 82553; 82962; 83036; 83735; 84100; 84436; 84443; 84479; 84484; 85025; 85610; 85730; 86850; 86900; 86901; 93005; 93306; 96374; 96375; 97162; J0360; J2250; J2270; J2405; J3475; J3480; J7030; J7040